=== PATIENT | female | born 1940 | race Caucasian/White ===

== ENCOUNTER → 2017-01-27 17:02 | Outpatient (CLI) | payer MEDICARE, OTHER | END | disposition home or self-care (01) | LOC: D.MAMMO 14:15 | DX: Z12.31 Encounter for screening mammogram for malignant neoplasm of breast (principal) ==

== ENCOUNTER → 2017-02-10 12:04 | Outpatient (CLI) | payer MEDICARE, OTHER | END | disposition home or self-care (01) | LOC: D.MAMMO 12:04 | DX: R92.8 Other abnormal and inconclusive findings on diagnostic imaging of breast (principal) ==

== ENCOUNTER 2017-12-02 11:53 | Inpatient (IN) | payer MEDICARE, OTHER ==
[~2017-12-02] VITALS: Ht 165.1 cm; Wt 68.4 kg
--- NOTE | ~2017-12-02 | DS ---
PATIENT:LUIS BEAULIEU :38 MEDICAL RECORD: [id number] DISCHARGE SUMMARY ADMISSION DATE: 12/02/17 DISCHARGE DATE: 12/05/17 DATE OF ADMISSION: 12/02/2017 DATE OF DISCHARGE: 12/05/2017 ADMITTING DIAGNOSIS: Fever. DISCHARGE DIAGNOSES: 1. Fever, resolved. 2. Diarrhea, improved. 3. Leukocytosis, resolved. BRIEF HISTORY AND HOSPITAL COURSE: This is a pleasant 77-year-old white female who woke up December 02 complaining of some stiffness between her shoulders and neck and headache, experienced a rigor. Her family brought her to the Emergency Room where she was found to be febrile. She initially had a white count of 12. Blood cultures have all been negative. Urine culture showed some mixed contamination. She had a mild elevation of her CK-MB, but her troponin was negative. Sed rate was elevated at 77. C-reactive protein was also elevated at 16.8. INR was normal. Liver function test revealed were not elevated. Tick titers were all ordered and pending at this time. Flu test was negative. Urinalysis revealed some ketones and 2+ blood. Again, culture showed mixed contamination. She was started on IV Levaquin. She has had several loose stools, but those are improving. The last 48 hours, she has been afebrile. She was initially a little hypotensive, but that has now resolved with fluids and she is actually feeling much better. She is tolerating fluids well. She is off IV fluids and is having an occasional loose stool. Due to the quality of her stool, there is no stool specimens been able to be collected at this time. She is going to be discharged to home on Levaquin and Flagyl and a probiotic, plus her only other home medication, which is a calcium supplement. I will follow up with her next . We will review her tick titers at that time. If still having any symptoms, we will continue workup as an outpatient. Since she has remained afebrile, she is medically stable at this point. She is instructed to stay out of the heat right now, drink plenty of fluids and a bland diet as tolerated. TRANSINT:[id number] Voice Confirmation ID: [id number] DOCUMENT ID: [id number] LUH GRESHAM DO at 1113 CC: [id number] DICTATION DATE: 12/05/17 0956 GLOBAL ENGINEERING MANAGER: 12/05/17 1258 DIS IN 12/05/17 [facility] [address] [place] [address]
[2017-12-02] MEDS ORDERED: CALCIUM 500 + D1 TAB PO (12:03)
[2017-12-02 12:49] LABS: BASOPHILS 0.2 % (0-2); EOSINOPHILS 0.1 % (0-7); HEMATOCRIT 39.2 % (36.0-48.0); HEMOGLOBIN 13.1 g/dL (12-16); IMMATURE GRANULOCYTES 0.4 % (0-5); LYMPHOCYTES 6.1 % (15-50); MCH 29.7 pg (26.0-34.0); MCHC 33.4 g/dL (31.0-37.0); MCV 88.9 fL (80.0-100.0); MEAN PLATELET VOLUME 10.1 fL (7.4-10.4); MONOCYTES 6.9 % (2-11); NEUTROPHILS 86.3 % (40-80); PLATELET COUNT 234 10x3/uL (130-400); RBC 4.41 10x6/uL (4.00-5.40); RDW 13.4 % (11.5-14.5); WBC 12.8 10x3/uL (4.8-10.8)
[2017-12-02 13:06] LABS: ALBUMIN 3.4 g/dL (3.4-5.0); ALKALINE PHOSPHATASE 84 U/L (46-116); ALT (SGPT) 21 U/L (10-68); BILIRUBIN - TOTAL 0.51 mg/dL (0.2-1.3); CALC OSMOLALITY 272 mosm/kg (275-300); CALCIUM 9.2 mg/dL (8.5-10.1); CARBON DIOXIDE 26.5 mmol/L (21.0-32.0); CHLORIDE - SERUM 101 mmol/L (98-107); CREATININE - SERUM 0.9 mg/dL (0.6-1.3); GLUCOSE 102 mg/dL (74-106); POTASSIUM - SERUM 3.4 mmol/L (3.5-5.1); SODIUM 137 mmol/L (136-145); UREA NITROGEN 11 mg/dL (7-18); eGFR NON AFRICAN AMERICAN 64 mL/min (90-120)
[2017-12-02 13:21] LABS: CKMB 4.3 U/L (0.0-3.6); CREATINE KINASE 203 UL (21-215); TROPONIN-I < 0.017 ng/mL (0.000-0.060)
[2017-12-02 13:59] LABS: APPEARANCE CLEAR (CLEAR); BILIRUBIN NEGATIVE (NEGATIVE); COLOR YELLOW (YELLOW); GLUCOSE NEGATIVE (NEGATIVE); KETONE LARGE mg/dL (NEGATIVE); NITRITE NEGATIVE (NEGATIVE); PROTEIN NEGATIVE (NEGATIVE); UROBILINOGEN NORMAL (NORMAL)
[2017-12-02 14:01] LABS: BACTERIA NONE SEEN /hpf (NONE SEEN); EPITHELIAL CELLS RARE /hpf (0-5); RED CELLS - URINE 0-5 /hpf (0-5); WHITE CELLS - URINE RARE /hpf (0-5)
[2017-12-02 21:01] VITALS: BP 124/62
[2017-12-03 00:23] VITALS: Ht 165.1 cm; Wt 68.4 kg
[2017-12-03 01:29] VITALS: BP 100/41
[2017-12-03 05:05] LABS: BASOPHILS 0.1 % (0-2); EOSINOPHILS 0 % (0-7); HEMATOCRIT 33.2 % (36.0-48.0); HEMOGLOBIN 10.8 g/dL (12-16); IMMATURE GRANULOCYTES 0.5 % (0-5); LYMPHOCYTES 8.8 % (15-50); MCH 29.3 pg (26.0-34.0); MCHC 32.5 g/dL (31.0-37.0); MONOCYTES 9.1 % (2-11); NEUTROPHILS 81.5 % (40-80); PLATELET COUNT 198 10x3/uL (130-400); RBC 3.69 10x6/uL (4.00-5.40); RDW 13.8 % (11.5-14.5); WBC 14.9 10x3/uL (4.8-10.8)
[2017-12-03 05:09] VITALS: BP 98/48
[2017-12-03 05:18] LABS: ANION GAP 9.9 mmol/L (8-16); BILIRUBIN - TOTAL 0.48 mg/dL (0.2-1.3); CALCIUM 8.1 mg/dL (8.5-10.1); CARBON DIOXIDE 25.4 mmol/L (21.0-32.0); CREATININE - SERUM 0.9 mg/dL (0.6-1.3); POTASSIUM - SERUM 3.3 mmol/L (3.5-5.1); PROTEIN - SERUM 5.3 g/dL (6.4-8.2)
[2017-12-03 05:19] LABS: ALBUMIN 2.3 g/dL (3.4-5.0)
[2017-12-03 08:48] VITALS: BP 98/42
[2017-12-03 10:48] VITALS: BP 101/51
[2017-12-03 15:41] VITALS: BP 105/55
[2017-12-03 17:25] LABS: ERYTHROCYTE SEDIMENTATION RATE 77 mm/hr (0-30)
[2017-12-03 22:34] VITALS: BP 124/62
[2017-12-04 01:00] VITALS: BP 105/52
[2017-12-04 05:41] LABS: BASOPHILS 0.2 % (0-2); EOSINOPHILS 0 % (0-7); HEMATOCRIT 33.8 % (36.0-48.0); HEMOGLOBIN 10.9 g/dL (12-16); IMMATURE GRANULOCYTES 0.2 % (0-5); LYMPHOCYTES 16.3 % (15-50); MCH 29.1 pg (26.0-34.0); MCHC 32.2 g/dL (31.0-37.0); MCV 90.4 fL (80.0-100.0); MEAN PLATELET VOLUME 10.1 fL (7.4-10.4); MONOCYTES 8.2 % (2-11); NEUTROPHILS 75.1 % (40-80); PLATELET COUNT 202 10x3/uL (130-400); RBC 3.74 10x6/uL (4.00-5.40); RDW 13.9 % (11.5-14.5); WBC 10.6 10x3/uL (4.8-10.8)
[2017-12-04 05:59] VITALS: BP 101/56
[2017-12-04 06:05] LABS: ALBUMIN 2.3 g/dL (3.4-5.0); ANION GAP 9.1 mmol/L (8-16); BILIRUBIN - TOTAL 0.2 mg/dL (0.2-1.3); CALCIUM 8.7 mg/dL (8.5-10.1); CARBON DIOXIDE 27.3 mmol/L (21.0-32.0); CREATININE - SERUM 0.8 mg/dL (0.6-1.3); POTASSIUM - SERUM 4.4 mmol/L (3.5-5.1); PROTEIN - SERUM 5.5 g/dL (6.4-8.2)
[2017-12-04 07:53] VITALS: BP 110/60
[2017-12-04 12:02] VITALS: BP 110/61
[2017-12-04 16:27] VITALS: BP 119/59
[2017-12-04 20:00] VITALS: BP 110/56
[2017-12-05] VITALS: BP 118/56
[2017-12-05 04:00] VITALS: BP 113/58
[2017-12-05 05:30] LABS: BASOPHILS 0.3 % (0-2); EOSINOPHILS 0 % (0-7); HEMATOCRIT 35.6 % (36.0-48.0); HEMOGLOBIN 11.7 g/dL (12-16); IMMATURE GRANULOCYTES 0.1 % (0-5); LYMPHOCYTES 19.2 % (15-50); MCH 29.5 pg (26.0-34.0); MCHC 32.9 g/dL (31.0-37.0); MCV 89.9 fL (80.0-100.0); MEAN PLATELET VOLUME 9.9 fL (7.4-10.4); MONOCYTES 10.5 % (2-11); NEUTROPHILS 69.9 % (40-80); PLATELET COUNT 222 10x3/uL (130-400); RBC 3.96 10x6/uL (4.00-5.40); RDW 13.8 % (11.5-14.5)
[2017-12-05 05:49] LABS: ALBUMIN 2.3 g/dL (3.4-5.0); ALKALINE PHOSPHATASE 64 U/L (46-116); BILIRUBIN - TOTAL 0.14 mg/dL (0.2-1.3); CALC OSMOLALITY 277 mosm/kg (275-300); CALCIUM 8.8 mg/dL (8.5-10.1); CARBON DIOXIDE 25.2 mmol/L (21.0-32.0); CHLORIDE - SERUM 107 mmol/L (98-107); CREATININE - SERUM 0.7 mg/dL (0.6-1.3); GLUCOSE 96 mg/dL (74-106); POTASSIUM - SERUM 4.2 mmol/L (3.5-5.1); PROTEIN - SERUM 5.7 g/dL (6.4-8.2); SODIUM 140 mmol/L (136-145); UREA NITROGEN 10 mg/dL (7-18); eGFR NON AFRICAN AMERICAN 86 mL/min (90-120)
[2017-12-05 05:50] LABS: WBC 6.7 10x3/uL (4.8-10.8)
[2017-12-05 05:52] LABS: ALT (SGPT) 19 U/L (10-68)
[2017-12-05 08:52] VITALS: BP 127/60
[2017-12-05] MEDS ORDERED: Levaquin PREMIX IV (09:49)
[2017-12-05] MEDS ORDERED: FLAGYL500 MG PO (09:49)
[2017-12-05] MEDS ORDERED: FLORAJEN3 CAPS460 MG PO (09:50)
[2017-12-05] MEDS ORDERED: LEVAQUIN500 MG PO (10:00)
[2017-12-08 13:17] LABS: RMSF IGM 0.23 index (0.00-0.89)
[2017-12-09 11:21] LABS: F. TULARENSIS - IGG Negative (()); F. TULARENSIS - IGM Negative (())
[2017-12-10 15:24] LABS: EHRLICHIA CHAFF IGG Negative (Neg:<1:64); EHRLICHIA CHAFF IGM Negative (Neg:<1:20); HGE IGG TITER Negative (Neg:<1:64); HGE IGM TITER Negative (Neg:<1:20)
== END 2017-12-05 13:56 | disposition home or self-care (01) | DRG 864 ==
LOC: D.ER 11:53 → D.EDHOLD 16:41 → D.M2 16:41
PROVIDERS: Family Medicine; Internal Medicine Nephrology
DX: R50.9 Fever, unspecified (principal); A28.9 Zoonotic bacterial disease, unspecified; B34.9 Viral infection, unspecified; B96.89 Other specified bacterial agents as the cause of diseases classified elsewhere; K57.90 Diverticulosis of intestine, part unspecified, without perforation or abscess without bleeding; K76.89 Other specified diseases of liver; K44.9 Diaphragmatic hernia without obstruction or gangrene; E87.6 Hypokalemia; R31.9 Hematuria, unspecified